=== PATIENT | female | born 1975 | race Caucasian/White ===

== ENCOUNTER 2016-08-22 06:05 | Inpatient (IN) | payer OTHER ==
[2016-08-22] MEDS ORDERED: ELECTROLYTE-148 SOLN 500 ML IV SCH (07:45)
[2016-08-22] MEDS ORDERED: CITRIC ACID/SODIUM CITRATE 30 ML UNIT-DOSE CUP PO ONE (07:45)
[2016-08-22] MEDS ORDERED: TUBERCULIN PPD 5 TU/0.1ML SYRINGE (IN PATIENT USE ONLY) ID ONE (07:45)
[2016-08-22 08:00] LABS: BASOPHIL 0.2 % (0-2.0); MCH 29.1 pg (25.7-33.7); MEAN CELL VOLUME 85.8 fl (80-96); MEAN PLT VOLUME 9.5 fl (7.5-11.1); NEUTROPHILS 72.9 % (42.8-82.8); PLATELET COUNT 138 K/MM3 (134-434); RDW 14.2 % (11.6-15.6); WHITE BLOOD COUNT 7.2 K/mm3 (4.0-10.0)
[2016-08-22 08:06] VITALS: BMI 37.3
[2016-08-22 08:13] LABS: ANION GAP 11 (8-16); CALCIUM 8.4 mg/dL (8.5-10.1); CO2 23 mmol/L (21-32); CREATININE 0.6 mg/dL (0.55-1.02); GLUCOSE,RANDOM 80 mg/dL (74-106); INR 0.98 (0.82-1.09); PROTHROMBIN TIME (PATIENT) 10.8 SEC (9.98-11.88)
[2016-08-22] MEDS ORDERED: ELECTROLYTE-148 SOLN 1,000 ML IV SCH (08:15)
[2016-08-22 08:16] LABS: ACTIVATED PTT 26.6 SECONDS (26.9-34.4)
--- NOTE | 2016-08-22 08:38 | HP ---
Past Medical History - Admission History of Present Illness: 40 yo @ 38 1/7 wks by first trimester ultrasound, EDC 09/04/2016 complicated by: 1. Hypothyroid 2. AMA 3. Myomectomy 10/01/2009 4. IVF - donor sperm, normal genetic screen 5. Hx/o hyperprolactinemia - s/p MRI brain, WNL, no medications 6. SMA carrier - increased risk 7. CF carrier Mikey reports leakage of clear fluid at 0400 this AM. She reports occasional contractions that began at 0600. She reports no vaginal bleeding, and endorses movement History Source: Patient Limitations to Obtaining History: No Limitations - Past Medical History ...: 3 ...Para: 0 ...Term: 0 ...: 0 ...Spon : 2 ...Induced : 0 ...Multiple Gestation: 0 ...LMP: 11/28/15 ... Weeks Gestation by Dates: 38.2 ...EDC by Dates: 09/03/16 ...EDC by Sono: 09/04/16 Endocrine: Yes: Hypothyroidism - Past Surgical History Hx Myomectomy: Yes Hx Transabdominal Cerclage: No Additional Surgical History: D&C. Myomectomy - Smoking History Smoking history: Never smoked Have you smoked in the past 12 months: No - Alcohol/Substance Use Hx Alcohol Use: No Home Medications - Allergies Allergies/Adverse Reactions: Allergies Allergy/AdvReac Type Severity Reaction Status Date / Time No Known Allergies Allergy Verified 02/15/16 22:22 - Home Medications Home Medications: Ambulatory Orders Levothyroxine [Synthroid -] 0.125 mcg PO DAILY 02/15/16 Vit No.130/Iron/FA [ Vitamins] 1 each PO DAILY 08/22/16 Family Disease History - Family Disease History Family History: Denies Review of Systems - Review of Systems Constitutional: reports: No Symptoms Neck: reports: No Symptoms Cardiovascular: reports: No Symptoms Respiratory: reports: No Symptoms Gastrointestinal: reports: No Symptoms Genitourinary: reports: No Symptoms Integumentary: reports: No Symptoms Neurological: reports: No Symptoms Hematology/Lymphatic: reports: No Symptoms Psychiatric: reports: No Symptoms Physical Exam - Maternity Vital Signs: Vital Signs Temperature 98.1 F 08/22/16 07:45 Pulse Rate 74 08/22/16 07:45 Respiratory Rate 20 08/22/16 07:45 Blood Pressure 121/74 08/22/16 07:45 O2 Sat by Pulse Oximetry (%) Constitutional: Yes: Well Nourished, No Distress, Calm Cardiovascular: Yes: Regular Rate and Rhythm Lungs: Clear to auscultation - Abdominal Exam/OB Fundal Height: 40 Number of Fetuses: Single Presentation: Vertex Contractions: No Regularity: Irregular Monitor Mode: External Heart Rate (range): 140 Category: I Accelerations: Non-Uniform Decelerations: None - Vaginal Exam/OB Vaginal Bleediing: No - Physical Exam Edema: No Psychiatric: Yes: Alert, Oriented - Labs Lab Results: CBC, BMP 08/22/16 07:20 08/22/16 07:20 Lab: A positive, antibody negative, RPR NR, HBS Ag negative, Rubella immune, GBS negative, HIV negative Hemorrhage Risk Assessment - Risk Factors Medium Risk Factors: Yes: Prior , uterine surgery,or multiple laparotomies High Risk Factors: Yes: None Risk Score: 1 Risk Level: Medium Risk Assessment/Plan 40 yo @ 38 2/8 wks s/p SROM, prior myomectomy for delivery 1. Admit to L&D 2. Consents reviewed and signed. Discussed risks including but not limited to infection, bleeding requiring transfusion and damage to surrounding organs such as the bowel or bladder. Discussed risk of injury to . Discussed risk of wound infection and separation. Discussed need for planning of future children and possibility of abnormal placentation. 3. Ancef ordered preop 4. Will proceed to OR
[2016-08-22 09:48] LABS: ARTERIAL BLD GAS O2 SATURATION 49.2 % (90-98.9); ARTERIAL BLOOD GAS HCO3 24.1 meq/L (22-26)
[2016-08-22 09:51] LABS: ARTERIAL BLD GAS O2 SATURATION 16.6 % (90-98.9); ARTERIAL BLOOD GAS BASE EXCESS -1.6 meq/l (-2-2); ARTERIAL BLOOD GAS HCO3 26.5 meq/L (22-26)
[2016-08-22 09:52] LABS: ARTERIAL BLOOD GAS PO2 23.6 mmHg (80-100); ARTERIAL BLOOD GAS pH 7.32 (7.35-7.45)
[2016-08-22 09:53] LABS: ARTERIAL BLOOD GAS PO2 14.5 mmHg (80-100); ARTERIAL BLOOD GAS pH 7.25 (7.35-7.45)
[2016-08-22] MEDS ORDERED: IBUPROFEN 800 MG/8 ML IJ IVPB PRN (10:24)
[2016-08-22] MEDS ORDERED: ONDANSETRON 4 MG/2 ML VIAL IVPUSH PRN (10:25)
--- NOTE | 2016-08-22 10:36 | PN ---
Delivery - Delivery Type of Anesthesia: Spinal Episiotomy/Laceration: None EBL (cc): 700 Delivery, Single - Stages of Labor Date 1st Stage Initiatied: 08/22/16 Time 1st Stage Initiated: 04:30 Date of Delivery: 08/22/16 Time of Delivery: 09:28 Time Placenta Delivered: 09:29 - Condition of Tar Worker/Insurance Manager Present: Yes Name: Sarbjit Méndez Gender: Female Weight: 7 lb 10 oz Position: Left, OT Total Hours ROM (Hrs/Mins): 5hrs 29mins - 1 Minute Total Score: 9 5 Minutes Total Score: 9 - [place] Feeding Plan Initial Plan: Elected not to breastfeed exclusively throughout hospitalization Remarks - Remarks Remarks: IVF - 1400 EBL - 700 Surgeon Nitin Lynne Anesthesia - Henry Dictation - [id number]
[2016-08-22] MEDS ORDERED: METHYLERGONOVINE MALEATE 0.2 MG/1 ML AMP IM PRN (10:37)
[2016-08-22] MEDS ORDERED: oxyCODONE HCL 5 MG TABLET PO PRN ×2 (10:37)
[2016-08-22] MEDS: OXYTOCIN 20 UNITS in 0.9% NS 1,000 ML IV SCH ×2 (11:00→17:17)
--- NOTE | 2016-08-22 11:08 | OP ---
DATE OF OPERATION: 08/22/2016 PREOPERATIVE DIAGNOSES: Intrauterine , 38 weeks, prior myomectomy, spontaneous rupture of membrane, and fibroid uterus. PRIMARY SURGEON: Shellie Casanova MD CORE MANAGER: Juvenal Lynne MD FINDINGS: A female , SUNNI position, Apgars 9, 9, weight 7 pounds 10 ounces , 19 inches. ESTIMATED BLOOD LOSS: 700 mL. IV FLUIDS GIVEN: 1400 mL. ANESTHESIOLOGIST: Madhav Figueroa MD INDICATION: Patient is a 40-year-old 3, para 0 with history of prior myomectomy with scheduled primary delivery. She presented with spontaneous ruptured membranes. She was counseled regarding risks, benefits, alternatives, and complications of the procedure, including infection, bleeding, damage to surrounding organs such as bowel bladder, or ureters. She expressed understanding and was brought to the operating room. PROCEDURE: When anesthesia was found to be adequate, patient was prepped and draped in the normal sterile fashion. Placed in dorsal supine position, leftward tilt. An approximately 11-cm skin incision was made with a knife and carried down to the underlying rectus muscle using the Bovie electrocautery. The fascia was nicked in midline and extended laterally using the Mayor scissors. Attention was brought to the inferior portion where it was tented up using Alison clamps, dissected off the underlying rectus muscles using the Monroe scissors. Attention was brought to the superior portion where in a similar fashion was tented up using Alison clamp, dissected off the underlying rectus muscles using the Monroe scissors. The rectus muscles were in the midline and the peritoneum was entered sharply. The adhesions noted from the bladder to the uterine serosa which was taken down sharply and a bladder flap was created digitally. The hysterotomy was made with the knife and extended laterally using the Monroe scissors. Amniotomy was performed. Clear fluid was noted. 's head was brought to the hysterotomy site followed by shoulders and body without difficulty. Nose and mouth were bulb suctioned. Cord was clamped and cut. Cord blood and cord gases were collected and the was handed off to NICU. The placenta was delivered and the uterus was cleared of all clot and debris. The uterus closed using 0 Biosyn in a running layer. The 2nd layer was an imbricated layer. The vesicouterine peritoneum was reapproximated using 0 Biosyn in a running fashion. The left fallopian tube and ovary were unable to be visualized secondary to adhesions from the bowel to the anterior abdominal wall. The right fallopian tube and ovary were examined and found to be normal. There was a 3-cm pedunculated fibroid noted attached to the round ligament which was suture ligated using 0 Vicryl and sent to Pathology. The peritoneum was closed using 2-0 Biosyn in a running fashion. The muscles were reapproximated using 0 Biosyn in an interrupted fashion. The fascia was closed using 0 Vicryl in a running fashion. The skin was reapproximated using 3-0 Vicryl. The patient tolerated the procedure well. Estimated blood loss was 700 mL. Patient was brought to the recovery room in stable condition. SHELLIE CASANOVA M.D. [id number] MTDD
[2016-08-23] MEDS: SIMETHICONE 80 MG TAB.CHEW (FP) PO PRN ×2 (06:40→16:18)
[2016-08-23] MEDS: IBUPROFEN 600 MG TABLET (FP) PO PRN ×2 (06:40→16:18)
[2016-08-23 08:03] LABS: BASOPHIL 0.3 % (0-2.0); EOSINOPHIL 0.8 % (0-4.5); MCH 29.3 pg (25.7-33.7); MCHC 34.3 g/dl (32.0-36.0); MEAN CELL VOLUME 85.5 fl (80-96); MEAN PLT VOLUME 8.9 fl (7.5-11.1); NEUTROPHILS 82.1 % (42.8-82.8); PLATELET COUNT 114 K/MM3 (134-434); WHITE BLOOD COUNT 7.8 K/mm3 (4.0-10.0)
[2016-08-23] MEDS: diphenhydrAMINE HCL 25 MG CAPSULE (FP) PO PRN (08:09)
[2016-08-23] MEDS ORDERED: ENOXAPARIN NA (PORCINE) 40 MG/0.4 ML DISP.SYRIN SQ SCH (10:00)
[2016-08-23] MEDS ORDERED: DIPHTH,PERTUSS(ACELL),TET 0.5 ML DISP.SYRIN IM ONE (10:00)
[2016-08-23] MEDS: ENOXAPARIN NA (PORCINE) 40 MG/0.4 ML DISP.SYRIN SQ SCH (10:10)
[2016-08-23] MEDS ORDERED: BISACODYL 10 MG SUPP.RECT RC PRN (10:37)
--- NOTE | 2016-08-23 14:37 | PN ---
Post Progress Note - Subjective Subjective: 40yo P1 now, s/p Primary c/s for h/o prior myomectomy no complains voiding, tolarating po, + flatus c/o upper Thigh rash Post Day: 1 Type of Delivery: Primary C/S Vital Signs: Vital Signs Temperature 98 F 08/23/16 08:33 Pulse Rate 77 08/23/16 08:33 Respiratory Rate 20 08/23/16 08:33 Blood Pressure 91/50 08/23/16 08:33 O2 Sat by Pulse Oximetry (%) 100 08/22/16 11:55 Breast Exam: Yes: Soft Uterus: Yes: Fundus Firm Incision: Yes: Dressing dry and intact Abdomen/GI: Yes: Abdomen soft, Tolerating PO Lochia: Yes: Rubra Lochia, amount: Small Extremities: Yes: Calves non-tender Activity: Ambulating - Labs Labs: CBC WBC 7.8 K/mm3 (4.0-10.0) 08/23/16 07:15 RBC 3.43 M/mm3 (3.60-5.2) L 08/23/16 07:15 Hgb 10.0 GM/dL (10.7-15.3) L D 08/23/16 07:15 Hct 29.3 % (32.4-45.2) L 08/23/16 07:15 MCV 85.5 fl (80-96) 08/23/16 07:15 MCH 29.3 pg (25.7-33.7) 08/23/16 07:15 MCHC 34.3 g/dl (32.0-36.0) 08/23/16 07:15 RDW 14.0 % (11.6-15.6) 08/23/16 07:15 Plt Count 114 K/MM3 (134-434) L 08/23/16 07:15 MPV 8.9 fl (7.5-11.1) 08/23/16 07:15 Neutrophils % 82.1 % (42.8-82.8) 08/23/16 07:15 Lymphocytes % 9.5 % (8-40) D 08/23/16 07:15 Monocytes % 7.3 % (3.8-10.2) 08/23/16 07:15 Eosinophils % 0.8 % (0-4.5) 08/23/16 07:15 Basophils % 0.3 % (0-2.0) 08/23/16 07:15 Assessment/Plan 40yo P1 now s/p 1' c/s VSS, Afibrile H/H stable Doing well Female infant Rh positive cont routine PP care
--- NOTE | 2016-08-24 00:21 | PN ---
Progress Note, Physician Chief Complaint: Pt. ambulating and voiding. No SCHMITZ, pain controlled. - Current Medication List Current Medications: Active Medications Bisacodyl (Dulcolax Suppository -) 10 mg RC PRN PRN PRN Reason: CONSTIPATION Diphenhydramine HCl (Benadryl Injection -) 25 mg IVPUSH Q4H PRN PRN Reason: itching Last Admin: 08/23/16 03:27 Dose: 25 mg Diphenhydramine HCl (Benadryl -) 25 mg PO Q4H PRN PRN Reason: ITCHING Last Admin: 08/23/16 08:09 Dose: 25 mg Enoxaparin Sodium (Lovenox -) 40 mg SQ DAILY EMILY Last Admin: 08/23/16 10:10 Dose: 40 mg Parenteral Electrolytes (Plasma-Lyte 148 -) 1,000 mls @ 125 mls/hr IV ASDIR EMILY Oxytocin/Sodium Chloride (Normal Saline+20 Units Oxytocin -) 1,000 mls @ 125 mls/hr IV ASDIR EMILY Last Admin: 08/22/16 17:17 Dose: 125 mls/hr Ibuprofen (Motrin -) 600 mg PO Q4H PRN PRN Reason: PAIN Last Admin: 08/23/16 16:18 Dose: 600 mg Methylergonovine Maleate (Methergine Injection -) 0.2 mg IM Q4H PRN PRN Reason: Excessive Bleeding (L&D) Oxycodone HCl (Roxicodone -) 5 mg PO Q4H PRN PRN Reason: PAIN LEVEL 1-5 Oxycodone HCl (Roxicodone -) 10 mg PO Q4H PRN PRN Reason: PAIN LEVEL 6-10 Simethicone (Mylicon -) 80 mg PO Q4H PRN PRN Reason: GAS Last Admin: 08/23/16 16:18 Dose: 80 mg Zinc Acetate/Diphenhydramine (Benadryl 2% Cream) 1 applic TP BID [facility] Last Admin: 08/23/16 22:12 Dose: Not Given - Objective Vital Signs: Vital Signs Temperature 98.3 F 08/23/16 20:51 Pulse Rate 86 08/23/16 20:51 Respiratory Rate 20 08/23/16 20:51 Blood Pressure 118/77 08/23/16 20:51 O2 Sat by Pulse Oximetry (%) 100 08/22/16 11:55 Constitutional: Yes: Well Nourished, No Distress, Calm Musculoskeletal: Yes: WNL Neurological: Yes: WNL, Alert, Oriented ...Motor Strength: WNL Labs: CBC, BMP 08/23/16 07:15 08/22/16 07:20 INR, PTT INR 0.98 (0.82-1.09) 08/22/16 07:20 Assessment/Plan POD#1 s/p under spinal with duramorph. Doing well. D/C from anesthesia care.
[2016-08-24] MEDS: IBUPROFEN 600 MG TABLET (FP) PO PRN ×4 (04:57→20:18)
[2016-08-24] MEDS: diphenhydrAMINE HCL 25 MG CAPSULE (FP) PO PRN (04:57)
[2016-08-24] MEDS: SIMETHICONE 80 MG TAB.CHEW (FP) PO PRN ×4 (04:57→20:18)
--- NOTE | 2016-08-24 07:56 | PN ---
Post Progress Note - Subjective Subjective: 40 yo P1 s/p 1' c/section no complains, voiding, tolerating regular diet Post Day: 2 Type of Delivery: Primary C/S Vital Signs: Vital Signs Temperature 98.3 F 08/23/16 20:51 Pulse Rate 86 08/23/16 20:51 Respiratory Rate 20 08/23/16 20:51 Blood Pressure 118/77 08/23/16 20:51 O2 Sat by Pulse Oximetry (%) 100 08/22/16 11:55 Breast Exam: Yes: Soft Uterus: Yes: Fundus Firm Incision: Yes: Dressing dry and intact Abdomen/GI: Yes: Abdomen soft, Tolerating PO Lochia: Yes: Rubra Lochia, amount: Small Extremities: Yes: Calves non-tender - Labs Labs: CBC WBC 7.8 K/mm3 (4.0-10.0) 08/23/16 07:15 RBC 3.43 M/mm3 (3.60-5.2) L 08/23/16 07:15 Hgb 10.0 GM/dL (10.7-15.3) L D 08/23/16 07:15 Hct 29.3 % (32.4-45.2) L 08/23/16 07:15 MCV 85.5 fl (80-96) 08/23/16 07:15 MCH 29.3 pg (25.7-33.7) 08/23/16 07:15 MCHC 34.3 g/dl (32.0-36.0) 08/23/16 07:15 RDW 14.0 % (11.6-15.6) 08/23/16 07:15 Plt Count 114 K/MM3 (134-434) L 08/23/16 07:15 MPV 8.9 fl (7.5-11.1) 08/23/16 07:15 Neutrophils % 82.1 % (42.8-82.8) 08/23/16 07:15 Lymphocytes % 9.5 % (8-40) D 08/23/16 07:15 Monocytes % 7.3 % (3.8-10.2) 08/23/16 07:15 Eosinophils % 0.8 % (0-4.5) 08/23/16 07:15 Basophils % 0.3 % (0-2.0) 08/23/16 07:15 Assessment/Plan 40yo P1 now s/p 1' c/s VSS, Afibrile H/H stable Rash improved Doing well Female infant Rh positive cont routine PP care
[2016-08-24] MEDS: ENOXAPARIN NA (PORCINE) 40 MG/0.4 ML DISP.SYRIN SQ SCH (09:16)
[2016-08-25] MEDS: SIMETHICONE 80 MG TAB.CHEW (FP) PO PRN ×3 (06:30→21:14)
[2016-08-25] MEDS: IBUPROFEN 600 MG TABLET (FP) PO PRN ×4 (06:30→21:01)
[2016-08-25 07:22] LABS: BASOPHIL 0.3 % (0-2.0); EOSINOPHIL 2.7 % (0-4.5); MCH 29.6 pg (25.7-33.7); MCHC 33.9 g/dl (32.0-36.0); MEAN CELL VOLUME 87.5 fl (80-96); MEAN PLT VOLUME 8.9 fl (7.5-11.1); NEUTROPHILS 66.5 % (42.8-82.8); PLATELET COUNT 128 K/MM3 (134-434); RDW 14.1 % (11.6-15.6)
--- NOTE | 2016-08-25 08:06 | PN ---
Post Progress Note - Subjective Subjective: 40yo P1 now s/p 1' c/s doing well voiding, ambulating, tolerating reg. diet, +FM Type of Delivery: Primary C/S Vital Signs: Vital Signs Temperature 98.1 F 08/24/16 22:00 Pulse Rate 82 08/24/16 22:00 Respiratory Rate 18 08/24/16 22:00 Blood Pressure 117/69 08/24/16 22:00 O2 Sat by Pulse Oximetry (%) 100 08/22/16 11:55 Breast Exam: Yes: Soft Uterus: Yes: Fundus Firm, Non-tender Incision: Yes: Dressing dry and intact, Sutures intact Abdomen/GI: Yes: Abdomen soft Lochia: Yes: Rubra Lochia, amount: Small Extremities: Yes: Calves non-tender Activity: Ambulating - Labs Labs: CBC WBC 5.0 K/mm3 (4.0-10.0) D 08/25/16 06:40 RBC 3.12 M/mm3 (3.60-5.2) L 08/25/16 06:40 Hgb 9.2 GM/dL (10.7-15.3) L 08/25/16 06:40 Hct 27.3 % (32.4-45.2) L 08/25/16 06:40 MCV 87.5 fl (80-96) 08/25/16 06:40 MCH 29.6 pg (25.7-33.7) 08/25/16 06:40 MCHC 33.9 g/dl (32.0-36.0) 08/25/16 06:40 RDW 14.1 % (11.6-15.6) 08/25/16 06:40 Plt Count 128 K/MM3 (134-434) L 08/25/16 06:40 MPV 8.9 fl (7.5-11.1) 08/25/16 06:40 Neutrophils % 66.5 % (42.8-82.8) 08/25/16 06:40 Lymphocytes % 23.0 % (8-40) D 08/25/16 06:40 Monocytes % 7.5 % (3.8-10.2) 08/25/16 06:40 Eosinophils % 2.7 % (0-4.5) D 08/25/16 06:40 Basophils % 0.3 % (0-2.0) 08/25/16 06:40 Assessment/Plan 40yo P1 now s/p 1' c/s VSS, Afibrile H/H stable Rash improved Doing well Female Rh positive D/C home NPV for 6 weeks RTO in 1 week
[2016-08-25] MEDS: ENOXAPARIN NA (PORCINE) 40 MG/0.4 ML DISP.SYRIN SQ SCH (09:51)
[2016-08-25] MEDS: OXYTOCIN 20 UNITS in 0.9% NS 1,000 ML IV SCH (12:37)
[2016-08-25 23:16] VITALS: TEMP 97.9
[2016-08-26] MEDS: SIMETHICONE 80 MG TAB.CHEW (FP) PO PRN (06:01)
[2016-08-26] MEDS: IBUPROFEN 600 MG TABLET (FP) PO PRN (06:01)
[2016-08-26] MEDS: ENOXAPARIN NA (PORCINE) 40 MG/0.4 ML DISP.SYRIN SQ SCH (10:07)
[2016-08-26 11:58] VITALS: BP 121/79; PULSE 68
--- NOTE | 2016-08-26 12:55 | DS ---
Physical Exam-LEAD FORMER Vital Signs: Vital Signs Temperature 97.9 F 08/26/16 10:00 Pulse Rate 68 08/26/16 10:00 Respiratory Rate 20 08/26/16 10:00 Blood Pressure 121/79 08/26/16 10:00 O2 Sat by Pulse Oximetry (%) 100 08/25/16 21:00 Constitutional: Yes: Well Nourished Eyes: Yes: WNL HENT: Yes: WNL Neck: Yes: WNL Cardiovascular: Yes: WNL Respiratory: Yes: WNL Gastrointestinal: Yes: WNL, Normal Bowel Sounds, Soft Renal/: Yes: WNL Pelvis: Yes: WNL External Genitalia: Yes: Normal Uterus: Yes: Normal, Firm ....Post : Yes: Uterus firm, Uterus non-tender Breast(s): Yes: WNL Musculoskeletal: Yes: WNL Extremities: Yes: WNL Edema: Yes Edema: LUE: 1+, LLE: 1+ Integumentary: Yes: WNL Wound/Incision: Yes: Well Approximated, Sutures Intact Neurological: Yes: WNL, Alert, Oriented ...Motor Strength: WNL Psychiatric: Yes: WNL Labs: CBC, BMP 08/25/16 06:40 08/22/16 07:20 Delivery - Delivery Type of Anesthesia: Epidural Episiotomy/Laceration: None EBL (cc): 700 Delivery, Single - Stages of Labor Date 1st Stage Initiatied: 08/22/16 Time 1st Stage Initiated: 04:30 Date of Delivery: 08/22/16 Time of Delivery: 09:28 Time Placenta Delivered: 09:29 - Condition of Edging Machine Setter/Tube Molder Fiberglass Present: Yes Name: Sarbjit Méndez Gender: Female Weight: 7 lb 10 oz Position: Left, OT Total Hours ROM (Hrs/Mins): 5hrs 29mins - 1 Minute Total Score: 9 5 Minutes Total Score: 9 - [place] Feeding Plan Initial Plan: Elected not to breastfeed exclusively throughout hospitalization Discharge Summary Reason For Visit: LABOR ADMIT/PRIMARY C/SECTION Condition: Good - Instructions Diet, Activity, Other Instructions: Physical activity Resume your normal everyday activity as tolerated no heavy lifting or exercise until seen by your surgeon. You may walk unlimited wilber of and climb stairs. You may resume driving the car when you feel safe and comfortable behind the wheel. No sexual activity as instructed. Wound care If you have a bandage, leave it on, and keep dry for 48-72 hours. After that time discard the outer bandage. If they are tapes on the skin under the out of bandage leave them in place. They will peel off in the next 7 to 10 days. Do Not Peel them off. You may shower the day after surgery. If there are tapes present on the skin, you may shower over them. Diet There are no dietary restrictions. Eat healthy, high-fiber foods. Drink 6 to 8 glasses of liquid each day. This will assist in keeping your bowels are regular. Pain management You may take Tylenol or acetaminophen or Ibuprofen (for example, Motrin, Advil etc.) from my pain prescription medication is ordered should be taken as prescribed for moderate to severe pain. Call MD for any of the following: Severe pain not relieved by medication Fever of 101 or higher Excessive bleeding or drainage on dressing Inability to urinate Referrals: Juvenal Lynne MD [Staff Physician] - Disposition: HOME - Home Medications Comprehensive Discharge Medication List: Ambulatory Orders Levothyroxine [Synthroid -] 0.125 mcg PO DAILY 02/15/16 Vit No.130/Iron/FA [ Vitamins] 1 each PO DAILY 08/22/16 Ibuprofen [Motrin -] 600 mg PO QID #28 tablet 08/25/16 Oxycodone HCl/Acetaminophen [Percocet 5-325 mg Tablet] 1 - 2 tab PO Q4H #20 tablet MDD 8 08/25/16
--- NOTE | 2016-08-28 14:24 | PATH ---
Surgical Pathology Report Patient Name: EVENS OLVERA [facility]. Rec. #: [id number] /Age/Gender: 1975 (Age: 40) / F Account: [id number] Location: [facility] OBS/TECHNICAL INFORMATION SPECIALIST Taken: 08/22/2016 Received: 08/25/2016 Reported: 08/28/2016 Physicians: Uyen Maza Specimen(s) Received A: PLACENTA B: UTERINE FIBROIDS Clinical History , 38.1 weeks, IVF, AMA Myomectomy 10/01/09, bunion surgery 2006 Primary with removal of fibroid Final Diagnosis A. PLACENTA, DELIVERY: FOCALLY DISRUPTED THIRD TRIMESTER PLACENTA WITH SUBCHORIONIC AND INTERVILLOUS FIBRIN DEPOSITION, THREE VESSEL UMBILICAL CORD AND UNREMARKABLE PLACENTAL MEMBRANES. B. UTERUS, MYOMECTOMY: LEIOMYOMA, 4 GRAMS. Electronically Signed Thierry Stoddard M.D. Gross Description A. The specimen is received fresh labeled placenta and is a 590 gram, 20.5 x 15.5 x 2.8 cm. placenta with attached membranes and umbilical cord. The attached membranes are conde, translucent with focal opacities and insert marginally. The umbilical cord measures 22 cm. in length and averages 1.1 cm. in diameter. The cord inserts eccentrically, 3.5 cm. to the nearest margin. No true knots or strictures are identified. Cut surface of the umbilical cord reveals 3 vessels. The surface is velasquez blue with moderate fibrin deposition and appropriate caliber vessels. The maternal surface is red-brown with focal defects. Sectioning reveals red-brown, spongy parenchyma. No lesions are identified. [place] sections are submitted in three cassettes as follows: 1- membrane rolls and umbilical cord; 2-3- full thickness sections of placenta. B. Received in formalin labeled "uterine fibroid," is a 4 g, 2.5 x 1.8 x 1.5 cm conde-osborn nodule, consistent with a uterine fibroid. Sectioning reveals conde, firm to rubbery parenchyma with whorled architecture. No areas of hemorrhage or necrosis are identified. [place] sections are submitted in one cassette. /08/[id number]
== END 2016-08-26 13:50 | disposition home or self-care (01) | DRG 766 ==
LOC: JDEL 06:05 → JLDR 06:06 → J3W 12:07
PROVIDERS: ADMIT Obstetrics & Gynecology; ATTEND Obstetrics & Gynecology
PROC: 10D00Z1 Extraction of Products of Conception, Low, Open Approach (ICD-10-PCS; principal; 2016-08-22)
PROC: 0UB90ZZ Excision of Uterus, Open Approach (ICD-10-PCS; 2016-08-22)
DX: O34.13 Maternal care for benign tumor of corpus uteri, third trimester (principal); O09.513 Supervision of elderly primigravida, third trimester; Z3A.38 38 weeks gestation of pregnancy; O99.283 Endocrine, nutritional and metabolic diseases complicating pregnancy, third trimester; E03.9 Hypothyroidism, unspecified; Z37.0 Single live birth
CPT/HCPCS: 36415; 36600; 80048; 82803; 85025; 85610; 85730; 86593; 86850; 86900; 86901; 88305-TC; 88307-TC; 90715; 94010